=== PATIENT | female | born 1965 | race Caucasian/White ===

== ENCOUNTER 2016-06-05 14:32 | Emergency (ER) | payer OTHER ==
[2016-06-05 14:49] VITALS: BP 123/83; PULSE 87; TEMP 98.7; BMI 27.4
--- NOTE | 2016-06-05 16:13 | PDOC ---
History of Present Illness - General Chief Complaint: Cold Symptoms Stated Complaint: SORE THROAT, HEADACHE Time Seen by Provider: 06/05/16 15:43 History Source: Patient Exam Limitations: No Limitations - History of Present Illness Initial Comments: 06/05/16 16:08 50-year-old female presents the ED with complaints of sinus pressure, frontal headache, nasal congestion, bilateral ear pain and sore throat for the past 2 weeks. Patient states pressure is worse when lying down and has tried Motrin with no relief. Patient denies fever, chills, dizziness, neck stiffness, or difficulty swallowing. Patient states that for some sinusitis symptoms unable to get an appointment with her primary care physician until so decided come into the ER for further evaluation. Timing/Duration: reports: other Severity: reports: mild Possible Cause: Yes: occasional episodes Associated Symptoms: reports: earache, headache, sinus infection, sore throat Past History - Past Medical History Allergies/Adverse Reactions: Allergies Allergy/AdvReac Type Severity Reaction Status Date / Time No Known Allergies Allergy Verified 06/05/16 14:44 Home Medications: Ambulatory Orders Ibuprofen [Motrin] 800 mg PO TID #20 tablet 12/08/13 Methocarbamol [Robaxin -] 500 mg PO TID #21 tablet 12/08/13 Ibuprofen 800 mg PO tablet 12/09/13 Methocarbamol 500 mg PO tablet 12/09/13 HTN: Yes Thyroid Disease: No - Surgical History Cholecystectomy: Yes - Psycho/Social/Smoking Cessation Hx Anxiety: No Suicidal Ideation: No Smoking History: Never smoked Patient Lives Alone: No Lives with/in: spouse/SO Review of Systems - Review of Systems Able to Perform ROS?: Yes Constitutional: No: Symptoms Reported HEENTM: Yes: Ear Pain, Nose Congestion, Throat Pain Respiratory: No: Symptoms reported Cardiac (ROS): No: Symptoms Reported ABD/GI: No: Symptoms Reported : No: Symptoms Reported Musculoskeletal: No: Symptoms Reported Integumentary: No: Symptoms Reported Neurological: Yes: Headache *Physical Exam - Vital Signs Last Vital Signs Temp Pulse Resp BP Pulse Ox 98.7 F 87 17 123/83 96 06/05/16 14:44 06/05/16 14:44 06/05/16 14:44 06/05/16 14:44 06/05/16 14:44 - Physical Exam General Appearance: Yes: Nourished, Appropriately Dressed. No: Apparent Distress HEENT: positive: EOMI, BRIANA, Pharynx Normal (noted mild exudate to the righ t2+ tonsil), Nasal Congestion, Sinus Tenderness (frontal and maxillary) Neck: positive: Tender. negative: Decreased range of motion, Lymphadenopathy (R ), Lymphadenopathy (L) Respiratory/Chest: positive: Lungs Clear, Normal Breath Sounds. negative: Respiratory Distress, Accessory Muscle Use Cardiovascular: positive: Regular Rhythm, Regular Rate. negative: Murmur Integumentary: positive: Normal Color, Warm, Moist Neurologic: positive: Motor Strength 5/5 (ambulatory) Medical Decision Making - Medical Decision Making 06/05/16 16:12 Patient with URI complaints associated with sinusitis. Patient on exam had frontal and maxillary sinus tenderness. Patient also with noted pressure complaints upon placing head between her legs. Patient on exam also had exudate to the right tonsil concerning for tonsillitis patient will be given Augmentin for treatment of both sinusitis, and tonsillitis. Patient also ordered for Flonase and requesting prescription for Motrin. *DC/Admit/Observation/Transfer Diagnosis at time of Disposition: Sinusitis Qualifiers: Sinusitis location: maxillary Chronicity: acute Recurrence: recurrent Qualified Code(s): J01.01 - Acute recurrent maxillary sinusitis - Discharge Dispostion Disposition: HOME Condition at time of disposition: Good - Referrals Referrals: Irene Rojas MD [Primary Care Provider] - - Patient Instructions Printed Discharge Instructions: DI for Sinusitis Additional Instructions: Drink plenty of fluids. Please use nasal sprays prescribed. Please take antibiotics as recommended. May use Motrin for any discomfort and follow-up with your PCP next week. otherwise return to ED if symptoms worsen.
== END 2016-06-05 16:21 | disposition home or self-care (01) ==
LOC: JERFT 14:32
DX: J01.01 Acute recurrent maxillary sinusitis (principal)
CPT/HCPCS: 99281-25

== ENCOUNTER 2016-10-12 11:47 | Emergency (ER) | payer OTHER ==
[2016-10-12 11:55] VITALS: BMI 27.4
[2016-10-12] MEDS ORDERED: ONDANSETRON 4 MG/2 ML VIAL ONE (12:54)
[2016-10-12] MEDS ORDERED: KETOROLAC TROMETHAMINE 30 MG/1 ML VIAL IVPUSH ONE (13:05)
[2016-10-12] MEDS ORDERED: ONDANSETRON 4 MG/2 ML VIAL IVPUSH ONE (13:05)
[2016-10-12] MEDS ORDERED: SODIUM CHLORIDE 1,000 ML IV STA (13:11)
--- NOTE | 2016-10-12 13:20 | PDOC ---
History of Present Illness - General History Source: Patient - History of Present Illness Timing/Duration: other (this am) Associated Symptoms: reports: headaches, nausea/vomiting. denies: chest pain, cough, fever/chills, shortness of breath, syncope, weakness <Radha GrierIsabel - Last Filed: 10/12/16 17:06> <LizbetEdy - Last Filed: 10/14/16 01:14> - General Chief Complaint: Lightheaded Stated Complaint: DIZZINESS Time Seen by Provider: 10/12/16 12:18 Past History - Past Medical History HTN: Yes Thyroid Disease: No - Surgical History Cholecystectomy: Yes - Psycho/Social/Smoking Cessation Hx Anxiety: No Suicidal Ideation: No Smoking History: Never smoked Hx Alcohol Use: Yes (SOCIAL) Drug/Substance Use Hx: No Substance Use Type: None <Radha GrierStephBrandee - Last Filed: 10/12/16 17:06> <LizbetEdy - Last Filed: 10/14/16 01:14> - Past Medical History Allergies/Adverse Reactions: Allergies Allergy/AdvReac Type Severity Reaction Status Date / Time No Known Allergies Allergy Verified 10/12/16 11:55 Home Medications: Ambulatory Orders Bisoprolol Fumarate/Hctz [Bisoprolol-Hctz 5-6.25 mg Tab] 1 each PO DAILY Review of Systems - Review of Systems Constitutional: No: Chills, Fever Respiratory: No: Shortness of Breath Cardiac (ROS): No: Chest Pain, Lightheadedness, Palpitations, Syncope ABD/GI: Yes: Nausea, Vomiting. No: Diarrhea : No: Dysuria <Shikha GrierhalleBrandee Last Filed: 10/12/16 17:06> *Physical Exam - Vital Signs Last Vital Signs Temp Pulse Resp BP Pulse Ox 98.5 F 97 H 20 133/94 98 10/12/16 11:51 10/12/16 11:51 10/12/16 11:51 10/12/16 11:51 10/12/16 11:51 - Physical Exam Comments: 10/12/16 13:22 Patient appears comfortable, currently lying on stretcher and talking on her cell phone General Appearance: Yes: Appropriately Dressed. No: Apparent Distress HEENT: positive: Normal Voice Neck: positive: Supple Respiratory/Chest: positive: Lungs Clear. negative: Normal Breath Sounds, Respiratory Distress Cardiovascular: positive: Regular Rate, S1, S2 Gastrointestinal/Abdominal: positive: Soft. negative: Tender Musculoskeletal: negative: CVA Tenderness Integumentary: positive: Dry, Warm Neurologic: positive: Fully Oriented, Alert, Normal Mood/Affect <CherrieRadhaIsabell - Last Filed: 10/12/16 17:06> - Vital Signs Last Vital Signs Temp Pulse Resp BP Pulse Ox 98.3 F 89 18 128/84 99 10/12/16 14:54 10/12/16 17:00 10/12/16 17:00 10/12/16 17:00 10/12/16 17:00 <Edy Somers - Last Filed: 10/14/16 01:14> Heart Score/ECG Review - ECG Intrepretation Comment:: 10/12/16 16:42 Twelve-lead EKG was performed and reviewed by me. There is normal sinus rhythm with a normal rate. The axis is normal. The intervals are normal. There are no ST or T wave abnormalities. Impression: Normal twelve-lead EKG <CherrieRadhaIsabell - Last Filed: 10/12/16 17:06> ED Treatment Course - LABORATORY CBC & Chemistry Diagram: 10/12/16 13:20 10/12/16 13:20 <CherrieYuliet - Last Filed: 10/12/16 17:06> - LABORATORY CBC & Chemistry Diagram: 10/12/16 13:20 10/12/16 13:20 - ADDITIONAL ORDERS Additional order review: 10/12/16 13:20 RBC 4.54 MCV 88.9 MCHC 34.6 RDW 12.7 MPV 9.7 Neutrophils % 64.5 Lymphocytes % 30.5 Monocytes % 3.9 Eosinophils % 0.4 Basophils % 0.7 - Medications Given in the ED: ED Medications Discontinued Medications Generic Name Dose Route Start Last Admin Trade Name Freq PRN Reason Stop Dose Admin Sodium Chloride 1,000 mls @ 1,000 mls/hr 10/12/16 13:11 10/12/16 13:16 Normal Saline - IV 10/12/16 14:10 1,000 mls/hr ASDIR STA Administration Ketorolac Tromethamine 30 mg 10/12/16 13:05 10/12/16 13:26 Toradol Injection - IVPUSH 10/12/16 13:06 30 mg ONCE ONE Administration Metoclopramide HCl 10 mg 10/12/16 14:27 10/12/16 14:42 Reglan Injection - IVPB 10/12/16 14:28 10 mg ONCE ONE Administration Ondansetron HCl 4 mg 10/12/16 13:05 10/12/16 13:16 Zofran Injection IVPUSH 10/12/16 13:06 4 mg ONCE ONE Administration <Edy Somers - Last Filed: 10/14/16 01:14> Medical Decision Making - Medical Decision Making 10/12/16 13:14 50-year-old female, history of HTN, presents with headache with nausea, vomiting. Patient states she was in her usual state of health until this a.m. when she woke up with diffuse headache with nausea vomiting. States symptoms has since improved. As per patient, spent the night at a friend's house and states this a.m. she woke up smelling gas and suspects that this is the reason for her symptoms. Denies visual changes, focal weakness, CP, SOB, abd pain, change in BM, dysuria, f/c See exam CABRERA w/ n/v after smelling gas this am Sxs since improved No chest/resp complaints No focal deficits -supportive tx -labs -reassess 10/12/16 14:28 10/12/16 15:47 10/12/16 16:37 Labs unremarkable. Pt significantly improved w/ meds. Stable for discharge w/ PMD f/u 10/12/16 17:06 <Yuliet Grier - Last Filed: 10/12/16 17:06> - Medical Decision Making 10/14/16 01:14 The patient was seen and evaluated in conjunction with SONNY Grier under my direct supervision, ancillary studies were reviewed. I agree with the plan as outlined by SONNY Grier . <Edy Somers - Last Filed: 10/14/16 01:14> *DC/Admit/Observation/Transfer <Yuliet Grier - Last Filed: 10/12/16 17:06> <Edy Somers - Last Filed: 10/14/16 01:14> Diagnosis at time of Disposition: Headache Qualifiers: Headache type: unspecified Headache chronicity pattern: acute headache Intractability: not intractable Qualified Code(s): R51 - Headache - Discharge Dispostion Disposition: HOME Condition at time of disposition: Improved - Referrals Referrals: Irene Rojas MD [Primary Care Provider] - - Patient Instructions Printed Discharge Instructions: DI for Headache Additional Instructions: Take motrin for headache as needed and follow up with PMD if symptoms re-occurs
[2016-10-12] MEDS ORDERED: KETOROLAC TROMETHAMINE 30 MG/1 ML VIAL ONE (13:23)
[2016-10-12 14:17] LABS: ALK PHOS 91 U/L (45-117); ANION GAP 8 (8-16); BASOPHIL 0.7 % (0-2.0); BILIRUBIN,TOTAL 0.5 mg/dL (0.2-1.0); CO2 28 mmol/L (21-32); CREATININE 0.6 mg/dL (0.55-1.02); EOSINOPHIL 0.4 % (0-4.5); GLUCOSE,RANDOM 96 mg/dL (74-106); MCH 30.7 pg (25.7-33.7); MCHC 34.6 g/dl (32.0-36.0); MEAN CELL VOLUME 88.9 fl (80-96); MEAN PLT VOLUME 9.7 fl (7.5-11.1); NEUTROPHILS 64.5 % (42.8-82.8); PLATELET COUNT 204 K/MM3 (134-434); RDW 12.7 % (11.6-15.6); SGOT/AST 21 U/L (15-37); SGPT/ALT 30 U/L (12-78); TOT PROT 8.2 g/dl (6.4-8.2); WHITE BLOOD COUNT 4.2 K/mm3 (4.0-10.0)
[2016-10-12] MEDS ORDERED: METOCLOPRAMIDE HCL INJECTION 10 MG/2 ML VIAL IVPB ONE (14:27)
[2016-10-12] MEDS ORDERED: METOCLOPRAMIDE HCL INJECTION 10 MG/2 ML VIAL ONE (14:35)
[2016-10-12 14:46] LABS: URINE APPEARANCE CLEAR; URINE BILIRUBIN NEGATIVE (NEGATIVE); URINE BLOOD NEGATIVE (NEGATIVE); URINE COLOR STRAW; URINE GLUCOSE (UA) NEGATIVE (NEGATIVE); URINE KETONE NEGATIVE (NEGATIVE); URINE NITRITE NEGATIVE (NEGATIVE); URINE PROTEIN NEGATIVE (NEGATIVE); URINE UROBILINOGEN NEGATIVE mg/dL (0.2-1.0)
[2016-10-12 14:49] LABS: URINE LEUK ESTERASE 2+ (NEGATIVE)
[2016-10-12 14:54] VITALS: TEMP 98.3
[2016-10-12 16:00] LABS: URINE MUCUS RARE; URINE WBC 1 /hpf (3-5)
[2016-10-12 17:01] VITALS: BP 128/84; PULSE 89
--- NOTE | 2016-10-13 11:54 | EKG ---
Test Reason : Blood Pressure : / mmHG Vent. Rate : 078 BPM Atrial Rate : 078 BPM P-R Int : 152 ms QRS Dur : 076 ms QT Int : 402 ms P-R-T Axes : 042 004 013 degrees QTc Int : 458 ms NORMAL SINUS RHYTHM POSSIBLE LEFT ATRIAL ENLARGEMENT BORDERLINE ECG WHEN COMPARED WITH ECG OF 13-APR-2009 18:05, NO SIGNIFICANT CHANGE WAS FOUND Confirmed by EVERARDO SAGASTUME MD ([id number]) on 10/13/2016 11:54:41 AM Referred By: Confirmed By:EVERARDO SAGASTUME MD
== END 2016-10-12 17:01 | disposition home or self-care (01) ==
LOC: JER 11:47
PROC: 3E0333Z Introduction of Anti-inflammatory into Peripheral Vein, Percutaneous Approach (ICD-10-PCS; principal; 2016-10-12)
PROC: 3E033GC Introduction of Other Therapeutic Substance into Peripheral Vein, Percutaneous Approach (ICD-10-PCS; 2016-10-12)
PROC: 3E0337Z Introduction of Electrolytic and Water Balance Substance into Peripheral Vein, Percutaneous Approach (ICD-10-PCS; 2016-10-12)
DX: R51 Headache (principal); I10 Essential (primary) hypertension
CPT/HCPCS: 36415; 80053; 81003; 81015; 84703; 85025; 93005; 93010; 96361; 96374; 96375; 99283-25